=== PATIENT | male | born 1960 | race Caucasian/White ===

== ENCOUNTER 2016-11-02 13:11 | Emergency (ER) | payer MEDICAID, OTHER ==
[2016-11-02 13:22] VITALS: BP 154/70; TEMP 98.2; BMI 5260.8
--- NOTE | 2016-11-02 13:26 | EDPRACDOC ---
- General Information Chief Complaint: Knee Pain Stated Complaint: FELL LT KNEE PAIN Time Seen by Provider: 11/02/16 13:23 Home Medications: Home Medications Hydrocodone Bit/Acetaminophen [Hydrocodon-Acetaminophen 5-325] 1 tab PO Q6 PRN # 15 tab 11/02/16 Metformin HCl 1,000 mg PO BID 11/02/16 Allergies/Adverse Reactions: Allergies Allergy/AdvReac Type Severity Reaction Status Date / Time benzoin Allergy Severe Rash-Locali Verified 11/02/16 13:29 zed - History of Present Illness Onset: [employer] HPI: PT STATES HE SLIPPED ON "RAMP" AT HOME, TWISTED LEFT KNEE, STATES PAIN AND SWELLING TO HIS KNEE SINCE, DENIES OTHER INJURY, TOOK IBUPROFEN 800 MG AT HOME WITHOUT RELIEF. Knee Problem Location: Left Mechanism: Reports: Twisting, Blunt Trauma Circumstances: Reports: Fall Relevant History: Reports: None Able to Bear Weight: Fully Pain Severity: Reports: Moderate Associated Signs & Symptoms: Reports: Swelling. Denies: Hip Pain, Thigh Pain, Leg Pain, Ankle Pain ED Past Medical History - History Reviewed Yes Nurses notes reviewed and agree except as marked - Patient Medical History Systemic History: Reports: Diabetes - Social Medical History Smoking Status: Never smoker ETOH: None Substance Abuse: None EDM Review of Systems - Review of Systems Neurological: negative: Dizziness, Headache, Numbness, Weakness Musculoskeletal: Knee Integumentary: No Symptoms Reported - Physical Exam Constitutional: Alert (Awake), No apparent distress Oriented to: Time, Person, Place Last recorded Vital Signs: Last Vital Signs Temp 98.2 F 11/02/16 13:21 Pulse Resp 20 11/02/16 13:21 BP 154/70 11/02/16 13:21 Pulse Ox Oxygen Pulse Oxygen Saturation O2 Device Room Air Oxygen Flow Rate Fraction of Inspired Oxygen ( FIO2) - HEENT Head: Normal ( normocephalic) - Integumentary Skin: Normal, Warm, Dry Lymphatics: Normal (no adenopathy) - Neurologic Memory Impaired: Normal Motor Function: Normal (Normal tone, Pulses 2+ No cyanosis or edema, FROM) Cranial Nerve: Normal (CN II-X11 intact sensation, strength 5/5) Cerebellar: Normal Mood Description: Normal Perception: Normal ED Knee Problem Phys Exam - Musculoskeletal Knee: Swelling, Moderate Tenderness. negative: Deformity, Joint Effusion, Limited ROM Knee Ligaments: Normal Knee Meniscus: Normal Thigh: Normal Lower Leg: Normal Distal Function/Circulation: Normal, Capillary Refill. negative: Motor Deficit , Pulse Deficit, Sensory Deficit - Integumentary Skin: Normal - Differential Diagnosis Contusion, DJD Arthritis, Tibia Fracture Decision Time to Discharge: 14:03 - Departure Disposition: Home Condition: Stable Final Diagnosis: Left knee sprain Qualifiers: Encounter type: initial encounter Involved ligament of knee: unspecified ligament Qualified Code(s): S83.92XA - Sprain of unspecified site of left knee, initial encounter Instructions: RICE: Routine Care for Injuries, Knee Sprain (ED) Education/Counseling Given To: Patient Education/Counseling Given Regarding: Diagnosis, Treatment, Prognosis, Follow Up Referrals: Corona Wiley MD [Staff Physician] - One Week Prescriptions: Hydrocodone Bit/Acetaminophen [Hydrocodon-Acetaminophen 5-325] 1 tab PO Q6 PRN # 15 tab PRN Reason: Pain Additional Instructions: Fracture/Sprain: Elevate affected area as much as possible, apply cold compresses 20 mins at a time as needed for pain or swelling,.
--- NOTE | 2016-11-02 13:58 | DIRPT ---
CLINICAL DATA: Pain and swelling to the left knee status post twisting injury. EXAM: LEFT KNEE - COMPLETE 4+ VIEW COMPARISON: None. FINDINGS: There is no evidence of fracture, dislocation, or joint effusion. There are mild 3 compartment osteoarthritic changes, worse in the patellofemoral compartment. Superior and anterior inferior patellar enthesophytes are also seen. Soft tissue ossifications overlying the quadriceps muscle may represent the site of prior traumatic injury or tendinitis. IMPRESSION: No acute fracture or dislocation identified about the left knee. Mild osteoarthritic changes of the knee, worse in the patellofemoral compartment. Probable quadriceps calcific tendinitis. Electronically Signed By: Bon Canales M.D. On: 11/02/2016 13:55
== END 2016-11-02 14:22 | disposition home or self-care (01) ==
LOC: ED 13:11
DX: S83.92XA Sprain of unspecified site of left knee, initial encounter (principal); W18.40XA Slipping, tripping and stumbling without falling, unspecified, initial encounter; Y93.9 Activity, unspecified
CPT/HCPCS: 99282